=== PATIENT | male | born 1985 | race African-American/Black ===

== ENCOUNTER 2019-11-17 06:15 | Emergency (ER) | payer OTHER ==
[~2019-11-17] VITALS: Ht 167.6 cm; Wt 99.1 kg
[2019-11-17 08:13] VITALS: BP 119/78
== END 2019-11-17 09:41 | disposition home or self-care (01) ==
LOC: EMS 06:20
DX: M79.602 Pain in left arm (principal); I10 Essential (primary) hypertension; Z88.6 Allergy status to analgesic agent